=== PATIENT | male | born 1995 | race Caucasian/White ===

== ENCOUNTER 2017-04-13 17:24 | Emergency (ER) | payer BC ==
--- NOTE | ~2017-04-13 | CT2 ---
[facility]. [facility] A Service of [facility] & [facility] RADIOLOGY TEXT RESULTS PATIENT: GEORGIE LEI LOCATION: SED : [birth year] UNIT #: [id number] AGE: [address]: Chris Negron MD SEX: M ORDER DR: [id number] [address] [address] [id number] MR#: [id number] Acc #: [id number] NAME: GEORGIE LEI : 1995 SEX: M STUDY DATE/TIME: 04/13/2017 19:19 UNIT: SED ROOM: STUDY DESCRIPTION: CT Abd and Pelv W Cont Attending Physician: Chris Negron M.D. Ordering Physician: Viktoria Fall M.D. Primary Care Physician: Primary Care Physician No MEDICAL IMAGING REPORT This report is preliminary unless electronic signature is present. EXAM CT abdomen and pelvis with contrast, 04/13/2017 19:19 hours HISTORY 21-year-old man with mid abdominal pain and vomiting intermittently for 1 week. History of prior kidney cancer and left nephrectomy. COMPARISON None available TECHNIQUE Dynamic helical CT images were obtained from the lung bases through the pubic symphysis with intravenous contrast only. Sagittal and coronal reconstructions were performed. Contrast was Isovue-370, 100 mL IV. Total exam DLP 646 mGy-cm. This CT exam was performed with one or more of the following radiation dose reduction techniques: automatic exposure control, adjustment of mA and/or kV according to patient size, and iterative reconstruction. FINDINGS Images through the lung bases demonstrate a tiny 3.0 mm noncalcified nodule at the lateral left lower lobe on image 7. This is felt likely benign. There are no effusions. Images through the abdomen demonstrate normal size liver and spleen. The pancreas, gallbladder and bile ducts are within normal limits. The right adrenal gland is normal. The right kidney is normal. The left kidney is surgically absent. I cannot discriminate a left adrenal gland. The abdominal aorta is normal in caliber. There are retroperitoneal surgical clips present. There is no adenopathy or ascites. The stomach is distended with air. No wall thickening is seen. There is STS. [facility] A Service of [facility] & [facility] RADIOLOGY TEXT RESULTS PATIENT: GEORGIE LEI LOCATION: SED : [birth year] UNIT #: [id number] AGE: [address]: Chris Negron MD SEX: M ORDER DR: no small bowel distension or small bowel wall thickening. The cecum sits low in the right lower quadrant. The appendix is air-filled and normal. There is moderate stool in the right colon and left colon without distension. CT pelvis is negative. IMPRESSION 1. No acute findings in the abdomen or pelvis. The patient is status post left nephrectomy and retroperitoneal lymph node dissection with surgical clips present. There is no adenopathy. 2. There is no distension or wall thickening in the stomach, small bowel, colon. The appendix is normal. 3. Gallbladder is contracted but normal in appearance. 4. There is a tiny 3.0 mm noncalcified nodule at the lateral left lung base. A benign etiology is favored. No additional followup is recommended. Dictated by... Vee Zavala M.D. THIS IS AN ELECTRONICALLY VERIFIED REPORT Vee Zavala M.D. at 04/14/2017 9:08 AM Jace TD: 04/14/2017 08:41 JOB #: [id number] MEDICAL IMAGING REPORT Page 1 of 1
[2017-04-13 18:20] LABS: URINE SOURCE CLEAN CATCH
[2017-04-13 18:20] LABS: BASOPHIL# 0.1 X10e3 (0-0.3); BASOPHIL% 0.9 % (0-2.5); EOSINOPHIL# 0.5 X10e3 (0-0.7); EOSINOPHIL% 7.5 % (0.0-7.0); HEMATOCRIT 45.8 % (38.0-50.0); HEMOGLOBIN 15.7 gm/dL (13.0-16.0); LYMPHOCYTE# 2.7 X10e3 (1.0-3.5); LYMPHOCYTE% 36.8 % (17.0-45.0); MEAN CELL VOLUME 85.3 FL (83-96); MEAN CORPUSCULAR HEMOGLOBIN 29.3 PG (28-34); MEAN CORPUSCULAR HGB CONC 34.3 g/dL (30-36); MONOCYTE# 0.6 X10e3 (0-1.0); MONOCYTE% 8.2 % (3.0-12.0); NEUTROPHIL# 3.4 X10e3 (1.5-7.1); NEUTROPHIL% 46.6 % (40-75); PLATELET COUNT 150 X10e3 (140-420); RED BLOOD COUNT 5.37 X10e (3.90-5.60); RED CELL DISTRIBUTION WIDTH 13.3 % (11.0-15.5); WHITE BLOOD COUNT 7.3 X10e3 (4.0-10.5)
[2017-04-13 18:23] LABS: URINE APPEARANCE CLEAR; URINE BILIRUBIN NEG (NEG); URINE BLOOD NEG (NEG); URINE COLOR YELLOW; URINE GLUCOSE NEG (NORM); URINE KETONE NEG (NEG); URINE LEUKOCYTE ESTERASE NEG (NEG); URINE NITRATE NEG (NEG); URINE PROTEIN NEG (NEG); URINE UROBILINOGEN 0.2 MG/DL (NORM)
[2017-04-13 18:46] LABS: ALBUMIN SERUM 5.1 g/dL (3.5-5.0); BILIRUBIN, DIRECT 0.1 mg/dL (0.0-0.2); BILIRUBIN,INDIRECT 0.2 mg/dL (0.0-0.9); BILIRUBIN,TOTAL 0.3 mg/dL (0.2-2.0); BUN/CREATININE RATIO 12.5; CALCIUM SERUM 9.2 mg/dL (8.4-10.2); CREATININE SERUM 1.2 mg/dL (0.6-1.4); GLOM FILT RATE Estimated 84.7 mL/min (>60); POTASSIUM 4.2 mmol/L (3.5-5.1); PROTEIN TOTAL SERUM 7.5 g/dL (6.0-8.3)
[2017-04-13 18:47] LABS: MICRO INDICATED? NO
[2017-04-13 18:47] LABS: DIFF IND NO
[2017-04-13] MEDS ORDERED: PRILOSEC PO (20:02)
[2017-04-13] MEDS ORDERED: ZOFRAN2 MG/1 ML (20:03)
[2017-04-13] MEDS ORDERED: CARAFATE (20:03)
== END 2017-04-13 20:07 | disposition home or self-care (01) ==
LOC: SED 17:24
PROVIDERS: Student in an Organized Health Care Education/Training Program
DX: K29.00 Acute gastritis without bleeding (principal)
CPT/HCPCS: 36415; 74177; 80048; 80076; 81003; 82150; 83690; 85025; 86677; 99284; Q9967